=== PATIENT | female | born 1995 | race African-American/Black ===

== ENCOUNTER 2024-04-30 20:12 | Emergency (ER) | payer MEDICAID ==
[~2024-04-30] VITALS: Ht 160 cm; Wt 52.0 kg
[2024-04-30] MEDS: OLANZAPINE 10 MG/VIAL IM ONE (20:37)
[2024-04-30] MEDS: MIDAZOLAM HCL 2 MG/2 ML VIAL IM ONE (20:37)
[2024-04-30 20:55] VITALS: O2SAT 99
[2024-04-30 23:46] LABS: BASOPHILS % 0.5 % (0.0-2.0); EOSINOPHILS % 0.7 % (0.0-5.0); HEMATOCRIT. 33.2 % (36.0-48.0); HEMOGLOBIN. 10.7 g/dL (12.0-16.0); LYMPHOCYTES % 31.8 % (20.0-50.0); MEAN CORPUSCULAR HEMOGLOBIN 25.9 pg (28.0-32.0); MEAN CORPUSCULAR HGB CONC 32.3 g/dL (31.0-37.0); MEAN CORPUSCULAR VOLUME 80.2 fL (81.0-99.0); MEAN PLATELET VOLUME 8.2 fl (7.4-10.4); MONOCYTES % 5.9 % (2.0-8.0); NEUTROPHILS % 61.1 % (40.0-76.0); PLATELET 318 x1000/uL (130-400); RED BLOOD CELL COUNT 4.14 mill/uL (4.2-5.4); RED CELL DISTRIBUTION WIDTH 16.9 % (11.6-14.6); WHITE BLOOD COUNT 10.1 x1000/uL (4.5-11.0)
[2024-04-30 23:55] LABS: CHLORIDE 108 mEq/L (98-107); POTASSIUM 3.8 mEq/L (3.5-5.1); SODIUM 142 mEq/L (136-145)
[2024-04-30 23:56] LABS: CALCIUM 9.7 mg/dL (8.7-10.4); CARBON DIOXIDE 25 mEq/L (21-32)
[2024-05-01 00:01] LABS: CREATININE 1.1 mg/dL (0.6-1.0); GLUCOSE 75 mg/dL (70-105); UREA NITROGEN BLOOD 17 mg/dL (9-23)
[2024-05-01 00:03] LABS: ACETAMINOPHEN < 2 ug/mL (10-30)
[2024-05-01 00:06] LABS: ETHANOL BLOOD < 10 mg/dL (<10)
[2024-05-01 00:24] LABS: HCG SCREEN NEGATIVE
[2024-05-01] MEDS: OLANZAPINE 5MG TABLET PO SCH (09:00)
[2024-05-03 02:09] LABS: CLARITY URINE CLEAR (CLEAR); COLOR URINE YELLOW (YELLOW); GLUCOSE URINE NEGATIVE (NEGATIVE); KETONES URINE NEGATIVE (NEGATIVE); LEUKOCYTE ESTERASE URINE 1+ (NEGATIVE); NITRITE URINE NEGATIVE (NEGATIVE); OCCULT BLOOD URINE NEGATIVE (NEGATIVE); PH URINE 6.5 (4.5-8.0); PROTEIN URINE NEGATIVE (NEGATIVE); SPECIFIC GRAVITY URINE 1.016 (1.005-1.030); UROBILINOGEN URINE 0.2 E.U./dL (0.2-1.0)
[2024-05-03 02:24] LABS: BACTERIA URINE 1+; RBC URINE 0-2 /hpf (0-2); SQUAMOUS EPITHELIAL CELL URINE 1+ /lpf (RARE/1+)
[2024-05-03 02:42] LABS: *AMPHETAMINES SCREEN URINE PRESUMPTIVE POSITIVE (NEGATIVE); *BARBITURATES SCREEN URINE NEGATIVE (NEGATIVE); *BENZODIAZEPINES SCREEN URINE NEGATIVE (NEGATIVE); *COCAINE SCREEN URINE NEGATIVE (NEGATIVE)
[2024-05-03 02:43] LABS: CANNABINOID URINE SCREEN NEGATIVE (NEGATIVE); ECSTASY MDMA SCREEN URINE NEGATIVE (NEGATIVE); METHADONE URINE SCREEN NEGATIVE (NEGATIVE); OPIATES URINE SCREEN NEGATIVE (NEGATIVE); PHENCYCLIDINE URINE SCREEN NEGATIVE (NEGATIVE)
[2024-05-03] MEDS: FLUOXETINE HCL 10 MG CAPSULE PO SCH (19:17)
[2024-05-04 12:00] VITALS: BP 120/78; PULSE 80; RESP 16; TEMP 36.72516; O2SAT 100
== END 2024-05-04 11:30 | disposition home or self-care (01) ==
LOC: ER 20:12
DX: R46.2 Strange and inexplicable behavior (principal); Z20.822 Contact with and (suspected) exposure to COVID-19
CPT/HCPCS: 80305; 80048; 81003; 80307; 80329; 80320; 84703; 85025; 36415; 71045; 96372; 99285; 87426; J3490; J2250; Z7610 ×3; G0480

== ENCOUNTER 2024-05-28 01:49 | Emergency (ER) | payer SELFPAY ==
[~2024-05-28] VITALS: Ht 170.2 cm; Wt 55.0 kg
[2024-05-28 01:57] VITALS: O2SAT 100
[2024-05-28 02:45] LABS: BASOPHILS % 0.5 % (0.0-2.0); EOSINOPHILS % 0.9 % (0.0-5.0); HEMATOCRIT. 32.4 % (36.0-48.0); HEMOGLOBIN. 10.5 g/dL (12.0-16.0); LYMPHOCYTES % 23.7 % (20.0-50.0); MEAN CORPUSCULAR HEMOGLOBIN 27.3 pg (28.0-32.0); MEAN CORPUSCULAR HGB CONC 32.5 g/dL (31.0-37.0); MEAN CORPUSCULAR VOLUME 83.9 fL (81.0-99.0); MEAN PLATELET VOLUME 7.2 fl (7.4-10.4); NEUTROPHILS % 66.9 % (40.0-76.0); PLATELET 444 x1000/uL (130-400); RED BLOOD CELL COUNT 3.87 mill/uL (4.2-5.4); RED CELL DISTRIBUTION WIDTH 17.2 % (11.6-14.6); WHITE BLOOD COUNT 8.8 x1000/uL (4.5-11.0)
[2024-05-28 03:24] LABS: CHLORIDE 109 mEq/L (98-107); POTASSIUM 3.7 mEq/L (3.5-5.1); SODIUM 141 mEq/L (136-145)
[2024-05-28 03:25] LABS: CARBON DIOXIDE 27 mEq/L (21-32)
[2024-05-28 03:26] LABS: CALCIUM 10.3 mg/dL (8.7-10.4)
[2024-05-28 03:30] LABS: GLUCOSE 78 mg/dL (70-105); UREA NITROGEN BLOOD 15 mg/dL (9-23)
[2024-05-28 03:32] LABS: ACETAMINOPHEN < 2 ug/mL (10-30)
[2024-05-28 03:40] LABS: *AMPHETAMINES SCREEN URINE PRESUMPTIVE POSITIVE (NEGATIVE); *BARBITURATES SCREEN URINE NEGATIVE (NEGATIVE); *BENZODIAZEPINES SCREEN URINE NEGATIVE (NEGATIVE)
[2024-05-28 03:41] LABS: *COCAINE SCREEN URINE NEGATIVE (NEGATIVE); CANNABINOID URINE SCREEN PRESUMPTIVE POSITIVE (NEGATIVE); ECSTASY MDMA SCREEN URINE CONF.TEST INDICATED (NEGATIVE); METHADONE URINE SCREEN NEGATIVE (NEGATIVE); OPIATES URINE SCREEN NEGATIVE (NEGATIVE); PHENCYCLIDINE URINE SCREEN PRESUMTIVE POSITIVE (NEGATIVE)
[2024-05-28 03:55] LABS: HCG SCREEN NEGATIVE
[2024-05-28 04:50] LABS: ETHANOL BLOOD < 10 mg/dL (<10)
[2024-05-28] MEDS ORDERED: LORAZEPAM 2MG/ML INJ IM ONE (05:15)
[2024-05-28] MEDS: DIPHENHYDRAMINE 50MG/ML VIAL IM ONE (05:25)
[2024-05-28] MEDS: HALOPERIDOL LACTATE 5MG/ML VIAL IM ONE (05:25)
[2024-05-28] MEDS ORDERED: LORAZEPAM 2MG/ML INJ IM NR (05:30)
[2024-05-28] MEDS: LORAZEPAM 2MG/ML INJ IM NR (12:44)
[2024-05-28] MEDS: MIRTAZAPINE 15MG TABLET PO SCH (21:00)
[2024-05-29 08:56] LABS: CLARITY URINE CLOUDY (CLEAR); COLOR URINE YELLOW (YELLOW); GLUCOSE URINE NEGATIVE (NEGATIVE); KETONES URINE NEGATIVE (NEGATIVE); LEUKOCYTE ESTERASE URINE TRACE (NEGATIVE); NITRITE URINE NEGATIVE (NEGATIVE); OCCULT BLOOD URINE NEGATIVE (NEGATIVE); PH URINE 5.5 (4.5-8.0); PROTEIN URINE NEGATIVE (NEGATIVE); SPECIFIC GRAVITY URINE 1.018 (1.005-1.030); UROBILINOGEN URINE 0.2 E.U./dL (0.2-1.0)
[2024-05-29 09:31] LABS: SQUAMOUS EPITHELIAL CELL URINE 3+ /lpf (RARE/1+)
[2024-05-29 09:33] LABS: BACTERIA URINE 3+; RBC URINE 0-2 /hpf (0-2); WBC URINE 0-2 /hpf (0-2)
[2024-05-29] MEDS: ARIPIPRAZOLE 5MG TABLET PO SCH (10:02)
[2024-05-29 14:46] VITALS: BP 92/48; PULSE 96; RESP 16; TEMP 36.66960; O2SAT 100
== END 2024-05-29 14:55 ==
LOC: ER 01:49
DX: R44.0 Auditory hallucinations (principal); F17.210 Nicotine dependence, cigarettes, uncomplicated; F15.10 Other stimulant abuse, uncomplicated; R45.851 Suicidal ideations; Z20.822 Contact with and (suspected) exposure to COVID-19
CPT/HCPCS: 80305; 80048; 80307; 80329; 80320; 84703; 85025; 36415; 93005; 96372; 99285; 87426; 81003; J1200; J1630; J2060; Z7610; G0480